=== PATIENT | female | born 1990 | race American Indian/Alaskan Native ===

== ENCOUNTER 2017-03-07 13:10 | Emergency (ER) | payer BC ==
[2017-03-07] MEDS ORDERED: DUONEB 0.5 MG-3 MG/3 ML SOLN IH ONE (13:50)
[2017-03-07] MEDS ORDERED: PROVENTIL IH ONE (13:50)
[2017-03-07] MEDS ORDERED: DECADRON IM ONE (13:52)
--- NOTE | 2017-03-07 13:54 | Emergency Department Report ---
- General Chief Complaint: Upper Respiratory Infection Stated Complaint: Wheezing, Chest Pain with Coughing Source: patient Mode of arrival: Ambulatory Limitations: No Limitations - History of Present Illness Initial Comments: 26 year old female presents to ED with pleuritic chest pain, wheezing, congestion, productive cough, sore throat x2 days. patient denies fever. patient states she has history of seasonal asthma and attempted one breathing treatment at home with her son's nebulizer. patient is stable, neurologically intact and in no acute distress. MD Complaint: cough, sore throat, nasal congestion -: Gradual, days(s) (2) Severity: mild Quality: aching Consistency: constant Improves With: nothing Worsens With: deep breaths Associated Symptoms: nasal congestion, sore throat, cough, chest pain (pleuritic ), nausea, vomiting. denies: fever - Related Data Previous Rx's Medication Instructions Recorded Last Taken Type Hyoscyamine Subl [Levsin Sl] 0.125 mg SL Q4HR PRN #10 tablet 12/15/14 Unknown Rx Ondansetron [Zofran Odt] 4 mg PO Q6H #10 tab.rapdis 12/15/14 Unknown Rx HYDROcodone/APAP 5-325 [[place] 1 each PO Q6HR PRN #5 tablet 04/25/16 Unknown Rx 5/325] Ketorolac [Toradol] 10 mg PO Q6H PRN #20 tablet 03/07/17 Unknown Rx Promethazine /Codeine 5 ml PO BID PRN #30 ml 03/07/17 Unknown Rx [Phenergan/Codeine 6.25-10 mg/5 ml] Allergies Allergy/AdvReac Type Severity Reaction Status Date / Time No Known Allergies Allergy Verified 04/25/16 04:33 ED Review of Systems ROS: Stated complaint: CHEST PAIN Other details as noted in HPI Constitutional: denies: chills, fever Eyes: denies: eye pain, eye discharge, vision change ENT: throat pain, congestion. denies: ear pain Respiratory: cough, wheezing (mild bilateral wheezing). denies: shortness of breath Cardiovascular: chest pain (pleuritic). denies: palpitations, dyspnea on exertion, edema, syncope Endocrine: no symptoms reported Gastrointestinal: denies: abdominal pain, nausea, diarrhea Genitourinary: denies: urgency, dysuria, discharge Musculoskeletal: denies: back pain, joint swelling, arthralgia Skin: denies: rash, lesions Neurological: headache. denies: weakness, paresthesias Psychiatric: denies: anxiety, depression Hematological/Lymphatic: denies: easy bleeding, easy bruising ED Past Medical Hx - Past Medical History Hx Seizures: Yes (Not taking seizure medication) Additional medical history: SEIZURES - Social History Smoking Status: Never Smoker Substance Use Type: None - Medications Home Medications: Home Medications Medication Instructions Recorded Confirmed Last Taken Type Hyoscyamine Subl [Levsin Sl] 0.125 mg SL Q4HR PRN #10 tablet 12/15/14 Unknown Rx Ondansetron [Zofran Odt] 4 mg PO Q6H #10 tab.rapdis 12/15/14 Unknown Rx HYDROcodone/APAP 5-325 [[place] 1 each PO Q6HR PRN #5 tablet 04/25/16 Unknown Rx 5/325] Ketorolac [Toradol] 10 mg PO Q6H PRN #20 tablet 03/07/17 Unknown Rx Promethazine /Codeine 5 ml PO BID PRN #30 ml 03/07/17 Unknown Rx [Phenergan/Codeine 6.25-10 mg/5 ml] ED Physical Exam - General Limitations: No Limitations General appearance: alert, in no apparent distress - Head Head exam: Present: atraumatic, normocephalic - Eye Eye exam: Present: normal appearance, PERRL, EOMI - ENT ENT exam: Present: normal exam, mucous membranes moist, TM's normal bilaterally - Neck Neck exam: Present: normal inspection, full ROM - Respiratory Respiratory exam: Present: wheezes (mild bilateral wheezing). Absent: respiratory distress, rales, rhonchi, stridor - Cardiovascular Cardiovascular Exam: Present: regular rate, normal rhythm. Absent: systolic murmur, diastolic murmur, rubs, gallop - GI/Abdominal GI/Abdominal exam: Present: soft, normal bowel sounds. Absent: tenderness - Rectal Rectal exam: Present: deferred - Extremities Exam Extremities exam: Present: normal inspection, full ROM - Back Exam Back exam: Present: normal inspection, full ROM - Neurological Exam Neurological exam: Present: alert, oriented X3, normal gait - Psychiatric Psychiatric exam: Present: normal affect, normal mood - Skin Skin exam: Present: warm, dry, intact, normal color. Absent: rash ED Course Vital Signs 03/07/17 03/07/17 03/07/17 13:21 14:19 14:44 Temperature 98.1 F Pulse Rate 77 Pulse Rate [ 90 Posterior Bilateral Throughout] Pulse Rate [ 92 H Posterior Right Throughout] Respiratory 18 Rate Respiratory 20 Rate [Posterior Bilateral Throughout] Respiratory 20 Rate [Posterior Right Throughout] Blood Pressure 126/85 Blood Pressure [Right] O2 Sat by Pulse 100 Oximetry 03/07/17 17:43 Temperature 98.0 F Pulse Rate 94 H Pulse Rate [ Posterior Bilateral Throughout] Pulse Rate [ Posterior Right Throughout] Respiratory 18 Rate Respiratory Rate [Posterior Bilateral Throughout] Respiratory Rate [Posterior Right Throughout] Blood Pressure Blood Pressure 136/85 [Right] O2 Sat by Pulse 97 Oximetry ED Medical Decision Making - Lab Data Microbiology 03/07/17 15:54 Nasopharyngeal Swab Influenza Types A,B Antigen ([place]) - Final 03/07/17 15:50 Throat Group A Streptococcus Rapid Screen - Final - EKG Data Interpretation: normal EKG - Radiology Data CXR 2 view Normal study. Interpreted by Radiologist - Medical Decision Making 26 year old female presents to ED with URI symptoms, cough, headache, congestion , pleuritic chest pain. patient has negative flu and strep during ED visit and pending strep culture. patient is stable, neurologically intact and in no acute distress. patient will be discharged with RX for NSAID's and cough syrup for viral syndrome. Critical care attestation.: If time is entered above; I have spent that time in minutes in the direct care of this critically ill patient, excluding procedure time. ED Disposition Clinical Impression: Viral syndrome Disposition: DISCHARGED TO HOME OR SELFCARE Is pt being admited?: No Does the pt Need Aspirin: No Condition: Stable Prescriptions: Ketorolac [Toradol] 10 mg PO Q6H PRN #20 tablet PRN Reason: Pain Promethazine /Codeine [Phenergan/Codeine 6.25-10 mg/5 ml] 5 ml PO BID PRN #30 ml PRN Reason: cough Referrals: PRIMARY CARE, [Primary Care Provider] - 3-5 Days Forms: Work/School Release Form(ED)
[2017-03-07] MEDS ORDERED: PHENERGAN/CODEINE 6.25-10 MG/5ML PO ONE (14:51)
--- NOTE | 2017-03-07 15:13 | XRay Report ---
Chest 2 views: History: Upper respiratory infection. Findings: Normal cardiomediastinal silhouette. Trachea is midline. No consolidation, pneumothorax or pleural effusion. Impression: No acute cardiopulmonary findings.
[2017-03-07 17:44] VITALS: BP 136/85
== END 2017-03-07 17:45 | disposition home or self-care (01) ==
LOC: ED 13:10
DX: B34.9 Viral infection, unspecified (principal)
CPT/HCPCS: 71020; 81025; 87116; 87400; 87430; 93005; 93010; 94640; 96372; 99284; J1100

== ENCOUNTER 2017-11-25 08:26 | Emergency (ER) | payer SELFPAY ==
[2017-11-25 10:15] LABS: Basophils % (Auto) 0.8 % (0.0-1.8); Eosinophils # (Auto) 0.1 K/mm3 (0.0-0.4); Eosinophils % (Auto) 1.5 % (0.0-4.3); Hematocrit 38.9 % (30.3-42.9); Hemoglobin 12.6 gm/dl (10.1-14.3); Lymphocytes # (Auto) 1.8 K/mm3 (1.2-5.4); Lymphocytes % (Auto) 44.9 % (13.4-35.0); Mean Corpuscular HGB Conc 32 % (30-34); Mean Corpuscular Hemoglobin 28 pg (28-32); Mean Corpuscular Volume 88 fl (79-97); Monocytes # (Auto) 0.5 K/mm3 (0.0-0.8); Monocytes % (Auto) 11.8 % (0.0-7.3); Platelet Count 330 K/mm3 (140-440); Red Blood Count 4.42 M/mm3 (3.65-5.03); Red Cell Distribution Width 12.8 % (13.2-15.2)
[2017-11-25 10:48] LABS: Alanine Aminotransferase 9 units/L (7-56); Albumin 4.3 g/dL (3.9-5); BUN/Creatinine Ratio 15; Blood Urea Nitrogen 9 mg/dL (7-17); Calcium 8.9 mg/dL (8.4-10.2); Hemolysis Index 9
[2017-11-25 11:27] LABS: Bacteria,Urine 1+ /HPF (Negative); Bilirubin,Urine NEG (Negative); Blood,Urine NEG (Negative); Color,Urine Yellow (Yellow); Mucus,Urine FEW /HPF; Nitrite,Urine NEG (Negative); Protein,Urine <15 mg/dL mg/dL (Negative); Urobilinogen,Urine < 2.0 mg/dL (<2.0)
--- NOTE | 2017-11-25 16:27 | Emergency Department Report ---
ED Female HPI - General Chief complaint: Abdominal Pain Stated complaint: ABD PAIN Time Seen by Provider: 11/25/17 16:26 Source: patient Mode of arrival: Ambulatory Limitations: No Limitations - History of Present Illness Initial comments: Patient reports that she is having lower abdominal pain since Friday cramping on and off. She said that she is here because her porphyrin was diagnosed with urinary tract infection last week and she wants to make sure that she does not have urinary tract infection she said the pain is in her left lower abdomen. She said her boyfriend was treated with a shot and a pill. I discussed with her if her porphyrin is having penile discharge and she said no. I discussed with her that if he was sent home with antibiotic she says no. I discussed with her more than likely her boyfriend was treated for STD empirically at his choice with Rocephin and azithromycin for gonorrhea and Chlamydia. Patient denies any vaginal discharge. She denies any vaginal bleeding. She denies any itching or sores on her vagina. She is not concerned about any STD. Denies any fever or chills, nausea or vomiting or back pain. Patient does not want to be tested for STD MD Complaint: pelvic pain Onset/Timin -: days(s) Location: suprapubic Radiation: non-radiating Severity: moderate Severity scale (0 -10): 5 Quality: cramping Consistency: intermittent Worsens with: none Are you Now?: No Associated Symptoms: abdominal pain. denies: vaginal discharge, vaginal bleeding, nausea/vomiting, fever/chills, headaches, loss of appetite, dysuria, hematuria, rash, seizure, shortness of breath, syncope, weakness - Related Data Sexually active: Yes Previous Rx's Medication Instructions Recorded Last Taken Type Hyoscyamine Subl [Levsin Sl] 0.125 mg SL Q4HR PRN #10 tablet 12/15/14 Unknown Rx Ondansetron [Zofran Odt] 4 mg PO Q6H #10 tab.rapdis 12/15/14 Unknown Rx HYDROcodone/APAP 5-325 [[place] 1 each PO Q6HR PRN #5 tablet 04/25/16 Unknown Rx 5/325] Ketorolac [Toradol] 10 mg PO Q6H PRN #20 tablet 03/07/17 Unknown Rx Promethazine /Codeine 5 ml PO BID PRN #30 ml 03/07/17 Unknown Rx [Phenergan/Codeine 6.25-10 mg/5 ml] Allergies Allergy/AdvReac Type Severity Reaction Status Date / Time No Known Allergies Allergy Verified 04/25/16 04:33 ED Review of Systems ROS: Stated complaint: ABD PAIN Other details as noted in HPI Comment: All other systems reviewed and negative Constitutional: no symptoms reported Respiratory: no symptoms reported Cardiovascular: denies: chest pain, palpitations, dyspnea on exertion, orthopnea , edema, syncope, paroxysmal nocturnal dyspnea Gastrointestinal: denies: abdominal pain, nausea, vomiting, diarrhea, constipation, hematemesis, melena, hematochezia Genitourinary: other (patient here to be checked for urinary tract infection because she said her boyfriend had a urinary tract infection and she wants to make sure she didn't get it). denies: urgency, dysuria, frequency, hematuria, discharge, abnormal menses, dyspareunia Musculoskeletal: denies: back pain, joint swelling, arthralgia, myalgia Skin: denies: rash Neurological: denies: headache ED Past Medical Hx - Past Medical History Previous Medical History?: Yes Hx Seizures: Yes (Not taking seizure medication) Additional medical history: SEIZURES - Surgical History Past Surgical History?: No - Family History Family history: no significant - Social History Smoking Status: Current Every Day Smoker Substance Use Type: None - Medications Home Medications: Home Medications Medication Instructions Recorded Confirmed Last Taken Type Hyoscyamine Subl [Levsin Sl] 0.125 mg SL Q4HR PRN #10 tablet 12/15/14 Unknown Rx Ondansetron [Zofran Odt] 4 mg PO Q6H #10 tab.rapdis 12/15/14 Unknown Rx HYDROcodone/APAP 5-325 [[place] 1 each PO Q6HR PRN #5 tablet 04/25/16 Unknown Rx 5/325] Ketorolac [Toradol] 10 mg PO Q6H PRN #20 tablet 03/07/17 Unknown Rx Promethazine /Codeine 5 ml PO BID PRN #30 ml 03/07/17 Unknown Rx [Phenergan/Codeine 6.25-10 mg/5 ml] ED Physical Exam - General Limitations: No Limitations General appearance: alert, in no apparent distress - Head Head exam: Present: atraumatic, normocephalic, normal inspection - Eye Eye exam: Present: normal appearance, PERRL, EOMI. Absent: periorbital swelling , periorbital tenderness Pupils: Present: normal accommodation - ENT ENT exam: Present: normal exam, normal orophraynx, mucous membranes moist - Neck Neck exam: Present: normal inspection, full ROM. Absent: tenderness, meningismus, lymphadenopathy, thyromegaly - Respiratory Respiratory exam: Present: normal lung sounds bilaterally. Absent: respiratory distress, chest wall tenderness - Cardiovascular Cardiovascular Exam: Present: regular rate, normal rhythm, normal heart sounds. Absent: systolic murmur, diastolic murmur - GI/Abdominal GI/Abdominal exam: Present: soft, normal bowel sounds. Absent: distended, tenderness, guarding, rebound, rigid, organomegaly, mass, bruit, pulsatile mass - Extremities Exam Extremities exam: Present: normal inspection, full ROM, normal capillary refill , other (no clubbing, cyanosis or edema. Positive pulses distal extremities. No neurovascular compromise). Absent: tenderness, pedal edema, joint swelling, calf tenderness - Back Exam Back exam: Present: normal inspection, full ROM. Absent: tenderness, CVA tenderness (R), CVA tenderness (L), muscle spasm, paraspinal tenderness, vertebral tenderness, rash noted - Neurological Exam Neurological exam: Present: alert, oriented X3, normal gait, reflexes normal. Absent: motor sensory deficit - Psychiatric Psychiatric exam: Present: normal affect, normal mood - Skin Skin exam: Present: warm, dry, intact, normal color. Absent: rash ED Course Vital Signs 11/25/17 09:06 Temperature 98.0 F Pulse Rate 81 Respiratory 16 Rate Blood Pressure 120/72 O2 Sat by Pulse 99 Oximetry - Reevaluation(s) Reevaluation #1: 11/25/17 17:14 She is stable and her abdominal pain has resolved since she's been in the emergency room. I discussed with her that her urinalysis and redness test was negative and her CBC and chemistry were stable. ED Medical Decision Making - Lab Data Result diagrams: 11/25/17 09:45 11/25/17 09:45 Lab Results 11/25/17 11/25/17 11/25/17 Range/Units 09:45 09:45 09:45 WBC 3.9 L (4.5-11.0) K/mm3 RBC 4.42 (3.65-5.03) M/mm3 Hgb 12.6 (10.1-14.3) gm/dl Hct 38.9 (30.3-42.9) % MCV 88 (79-97) fl MCH 28 (28-32) pg MCHC 32 (30-34) % RDW 12.8 L (13.2-15.2) % Plt Count 330 (140-440) K/mm3 Lymph % (Auto) 44.9 H (13.4-35.0) % [place] % (Auto) 11.8 H (0.0-7.3) % Eos % (Auto) 1.5 (0.0-4.3) % Baso % (Auto) 0.8 (0.0-1.8) % Lymph # 1.8 (1.2-5.4) K/mm3 [place] # 0.5 (0.0-0.8) K/mm3 Eos # 0.1 (0.0-0.4) K/mm3 Baso # 0.0 (0.0-0.1) K/mm3 Seg Neutrophils % 41.0 (40.0-70.0) % Seg Neutrophils # 1.6 L (1.8-7.7) K/mm3 Sodium 142 (137-145) mmol/L Potassium 3.8 (3.6-5.0) mmol/L Chloride 104.5 (98-107) mmol/L Carbon Dioxide 28 (22-30) mmol/L Anion Gap 13 mmol/L BUN 9 (7-17) mg/dL Creatinine 0.6 L (0.7-1.2) mg/dL Estimated GFR > 60 ml/min BUN/Creatinine Ratio 15 % Glucose 88 (65-100) mg/dL Calcium 8.9 (8.4-10.2) mg/dL Total Bilirubin 0.50 (0.1-1.2) mg/dL AST 17 (5-40) units/L ALT 9 (7-56) units/L Alkaline Phosphatase 56 (35-129) units/L Total Protein 7.0 (6.3-8.2) g/dL Albumin 4.3 (3.9-5) g/dL Albumin/Globulin Ratio 1.6 % HCG, Qual Negative (Negative) Urine Color (Yellow) Urine Turbidity (Clear) Urine pH (5.0-7.0) Ur Specific [place] (1.003-1.030) Urine Protein (Negative) mg/dL Urine Glucose (UA) (Negative) mg/dL Urine Ketones (Negative) mg/dL Urine Blood (Negative) Urine Nitrite (Negative) Urine Bilirubin (Negative) Urine Urobilinogen (<2.0) mg/dL Ur Leukocyte Esterase (Negative) Urine WBC (Auto) (0.0-6.0) /HPF Urine RBC (Auto) (0.0-6.0) /HPF U Epithel Cells (Auto) (0-13.0) /HPF Urine Bacteria (Auto) (Negative) /HPF Urine Mucus /HPF 11/25/17 Range/Units 10:23 WBC (4.5-11.0) K/mm3 RBC (3.65-5.03) M/mm3 Hgb (10.1-14.3) gm/dl Hct (30.3-42.9) % MCV (79-97) fl MCH (28-32) pg MCHC (30-34) % RDW (13.2-15.2) % Plt Count (140-440) K/mm3 Lymph % (Auto) (13.4-35.0) % [place] % (Auto) (0.0-7.3) % Eos % (Auto) (0.0-4.3) % Baso % (Auto) (0.0-1.8) % Lymph # (1.2-5.4) K/mm3 [place] # (0.0-0.8) K/mm3 Eos # (0.0-0.4) K/mm3 Baso # (0.0-0.1) K/mm3 Seg Neutrophils % (40.0-70.0) % Seg Neutrophils # (1.8-7.7) K/mm3 Sodium (137-145) mmol/L Potassium (3.6-5.0) mmol/L Chloride (98-107) mmol/L Carbon Dioxide (22-30) mmol/L Anion Gap mmol/L BUN (7-17) mg/dL Creatinine (0.7-1.2) mg/dL Estimated GFR ml/min BUN/Creatinine Ratio % Glucose (65-100) mg/dL Calcium (8.4-10.2) mg/dL Total Bilirubin (0.1-1.2) mg/dL AST (5-40) units/L ALT (7-56) units/L Alkaline Phosphatase (35-129) units/L Total Protein (6.3-8.2) g/dL Albumin (3.9-5) g/dL Albumin/Globulin Ratio % HCG, Qual (Negative) Urine Color Yellow (Yellow) Urine Turbidity Clear (Clear) Urine pH 6.0 (5.0-7.0) Ur Specific [place] 1.028 (1.003-1.030) Urine Protein <15 mg/dl (Negative) mg/dL Urine Glucose (UA) Neg (Negative) mg/dL Urine Ketones Neg (Negative) mg/dL Urine Blood Neg (Negative) Urine Nitrite Neg (Negative) Urine Bilirubin Neg (Negative) Urine Urobilinogen < 2.0 (<2.0) mg/dL Ur Leukocyte Esterase Neg (Negative) Urine WBC (Auto) 3.0 (0.0-6.0) /HPF Urine RBC (Auto) 2.0 (0.0-6.0) /HPF U Epithel Cells (Auto) 7.0 (0-13.0) /HPF Urine Bacteria (Auto) 1+ (Negative) /HPF Urine Mucus Few /HPF Urine culture sent and pending - Medical Decision Making ED course: She here reports that she is here to be checked for urinary tract infection because her boyfriend had a urinary tract infection last week and she was to make sure that she does not have it. She is not having any vaginal bleeding or discharge. Lab stable, negative , urinalysis is negative except 1+ bacteria and urine cultures were sent. Patient is not having any urinary symptoms. Discussed patient that I will order ultrasound to check to make sure that her ovaries or normal and she refused and said that she does not want a high bill. She also said that she is only here because his she wants to make sure that she doesn't have a urinary tract infection. I told patient that if her boyfriend was treated with a shot of a pill that means that he was treated for STD and I asked her if she wants to be tested or treated and she says she does not have an STD. I discussed with her that she needs to go to a clinic and can't help department and get STD test if she changes her mind and she voiced understanding. Patient abdominal pain has resolved and she is able to tolerate fluids without any nausea or vomiting. Discharged home to follow up with [facility]. Critical care attestation.: If time is entered above; I have spent that time in minutes in the direct care of this critically ill patient, excluding procedure time. ED Disposition Clinical Impression: Abdominal pain Qualifiers: Abdominal location: left lower quadrant Qualified Code(s): R10.32 - Left lower quadrant pain Disposition: TO HOME OR SELFCARE Is pt being admited?: No Does the pt Need Aspirin: No Condition: Stable Instructions: Abdominal Pain (ED), Safe Sex (ED) Additional Instructions: Please return to the emergency room if your abdominal If you decide to get checked for STD, UTI go to [facility] Please practice safe sex Referrals: PRIMARY CARE, [Primary Care Provider] - 2-3 Days [facility] [Outside] - 2-3 Days [facility] [Outside] - 2-3 Days Forms: Work/School Release Form(ED)
[2017-11-25 17:34] VITALS: BP 117/76
[2017-11-25] MEDS ORDERED: ROCEPHIN IM ONE (17:36)
[2017-11-25] MEDS ORDERED: XYLOCAINE 1% MPF 5 mL INFILTRATI ONE (17:36)
[2017-11-25] MEDS ORDERED: ZITHROMAX PO ONE (17:36)
== END 2017-11-25 17:59 | disposition home or self-care (01) ==
LOC: ED 08:26
DX: R10.9 Unspecified abdominal pain (principal); F17.200 Nicotine dependence, unspecified, uncomplicated
CPT/HCPCS: 36415; 80053; 81001; 84703; 85025; 87086; 96372; 99283; J0696

== ENCOUNTER 2018-05-15 16:05 | Emergency (ER) | payer SELFPAY ==
[2018-05-15 17:52] LABS: HCG Qualitative,Urine Positive (Negative)
[2018-05-15 17:53] LABS: Bilirubin,Urine NEG (Negative); Blood,Urine NEG (Negative); Color,Urine Yellow (Yellow); Urobilinogen,Urine < 2.0 mg/dL (<2.0); WBC,Urine < 1.0 /HPF (0.0-6.0)
[2018-05-15 18:05] LABS: Basophils # (Auto) 0.1 K/mm3 (0.0-0.1); Basophils % (Auto) 0.9 % (0.0-1.8); Eosinophils # (Auto) 0.1 K/mm3 (0.0-0.4); Eosinophils % (Auto) 1.1 % (0.0-4.3); Hematocrit 38.4 % (30.3-42.9); Hemoglobin 12.6 gm/dl (10.1-14.3); Lymphocytes # (Auto) 1.5 K/mm3 (1.2-5.4); Lymphocytes % (Auto) 21.8 % (13.4-35.0); Mean Corpuscular HGB Conc 33 % (30-34); Mean Corpuscular Hemoglobin 29 pg (28-32); Mean Corpuscular Volume 88 fl (79-97); Monocytes # (Auto) 0.5 K/mm3 (0.0-0.8); Monocytes % (Auto) 7.7 % (0.0-7.3); Platelet Count 368 K/mm3 (140-440); Red Blood Count 4.38 M/mm3 (3.65-5.03); Red Cell Distribution Width 12.9 % (13.2-15.2)
[2018-05-15 18:18] LABS: Alanine Aminotransferase 7 units/L (7-56); Albumin 4.3 g/dL (3.9-5); BUN/Creatinine Ratio 20; Blood Urea Nitrogen 10 mg/dL (7-17); Calcium 9.1 mg/dL (8.4-10.2); Hemolysis Index 3
[2018-05-15] MEDS ORDERED: NACL 0.9% 1000 ML 1,000 ML IV ONE (20:51)
--- NOTE | 2018-05-15 21:03 | Emergency Department Report ---
ED Abdominal Pain HPI - General Chief Complaint: Abdominal Pain Stated Complaint: LIGHT HEADED/DIZZY 7WKS PREGRANT Time Seen by Provider: 05/15/18 20:50 Source: patient Mode of arrival: Ambulatory Limitations: No Limitations - History of Present Illness Initial Comments: Patient is a 27-year-old female presents emergency room with complaints of lower abdominal pain 2 days. Patient states the pain is a 2-3 out of 10. Patient states the pain is worse with movement and that or with rest. Patient states she is 7 weeks just found out about 2 days ago. Patient states her last menstrual period was 03/27/2018. Patient also complains of nausea, headache, dizziness. Patient states she has not been eating well or drinking very much water. Patient states these transient symptoms are different from her previous . Patient denies vaginal bleeding. Patient denies vaginal discharge or loss of fluid per vagina. Patient states she had a positive home test. Patient has not seen an MAINTENANCE ELECTRICIAN yet. She is a . Patient states that she has one healthy boy child and had an miscarriage. Previous uneventful and was a vaginal delivery. Patient states dizziness is improving. Patient states the headache is improving. Patient states the dizziness only when she stands up. Patient denies fever and chills. Patient denies chest pain shortness of breath. MD Complaint: abdominal pain -: Sudden Location: LLQ Radiation: none Migration to: no migration Severity: mild Severity scale (0 -10): 2 Quality: cramping Consistency: constant Improves With: rest Worsens With: movement Context: other () Associated Symptoms: nausea. denies: vomiting, diarrhea, fever, chills, constipation, dysuria, hematemesis, hematochezia, melena, hematuria, anorexia, syncope - Related Data LMP (females 10-50): Previous Rx's Medication Instructions Recorded Last Taken Type Hyoscyamine Subl [Levsin Sl] 0.125 mg SL Q4HR PRN #10 tablet 12/15/14 Unknown Rx Ondansetron [Zofran Odt] 4 mg PO Q6H #10 tab.rapdis 12/15/14 Unknown Rx HYDROcodone/APAP 5-325 [[place] 1 each PO Q6HR PRN #5 tablet 04/25/16 Unknown Rx 5/325] Ketorolac [Toradol] 10 mg PO Q6H PRN #20 tablet 03/07/17 Unknown Rx Promethazine /Codeine 5 ml PO BID PRN #30 ml 03/07/17 Unknown Rx [Phenergan/Codeine 6.25-10 mg/5 ml] Allergies Allergy/AdvReac Type Severity Reaction Status Date / Time No Known Allergies Allergy Verified 04/25/16 04:33 ED Review of Systems ROS: Stated complaint: LIGHT HEADED/DIZZY 7WKS PREGRANT Other details as noted in HPI Constitutional: denies: chills, fever Eyes: denies: eye pain, eye discharge, vision change ENT: denies: ear pain, throat pain Respiratory: denies: cough, shortness of breath, wheezing Cardiovascular: denies: chest pain, palpitations Endocrine: no symptoms reported Gastrointestinal: abdominal pain, nausea. denies: vomiting, diarrhea Genitourinary: denies: urgency, dysuria, discharge Musculoskeletal: denies: back pain, joint swelling, arthralgia Skin: denies: rash, lesions Neurological: headache. denies: weakness, paresthesias Psychiatric: denies: anxiety, depression Hematological/Lymphatic: denies: easy bleeding, easy bruising ED Past Medical Hx - Past Medical History Previous Medical History?: Yes Hx Seizures: Yes (Not taking seizure medication) Additional medical history: SEIZURES - Surgical History Past Surgical History?: No - Family History Family history: no significant - Social History Smoking Status: Never Smoker Substance Use Type: None - Medications Home Medications: Home Medications Medication Instructions Recorded Confirmed Last Taken Type Hyoscyamine Subl [Levsin Sl] 0.125 mg SL Q4HR PRN #10 tablet 12/15/14 Unknown Rx Ondansetron [Zofran Odt] 4 mg PO Q6H #10 tab.rapdis 12/15/14 Unknown Rx HYDROcodone/APAP 5-325 [[place] 1 each PO Q6HR PRN #5 tablet 04/25/16 Unknown Rx 5/325] Ketorolac [Toradol] 10 mg PO Q6H PRN #20 tablet 03/07/17 Unknown Rx Promethazine /Codeine 5 ml PO BID PRN #30 ml 03/07/17 Unknown Rx [Phenergan/Codeine 6.25-10 mg/5 ml] ED Physical Exam - General Limitations: No Limitations General appearance: alert, in no apparent distress - Head Head exam: Present: atraumatic, normocephalic - Eye Eye exam: Present: normal appearance - ENT ENT exam: Present: mucous membranes moist - Neck Neck exam: Present: normal inspection - Respiratory Respiratory exam: Present: normal lung sounds bilaterally. Absent: respiratory distress - Cardiovascular Cardiovascular Exam: Present: regular rate, normal rhythm. Absent: systolic murmur, diastolic murmur, rubs, gallop - GI/Abdominal GI/Abdominal exam: Present: soft, normal bowel sounds. Absent: distended, tenderness, guarding, rebound - Extremities Exam Extremities exam: Present: normal inspection - Back Exam Back exam: Present: normal inspection - Neurological Exam Neurological exam: Present: alert, oriented X3 - Psychiatric Psychiatric exam: Present: normal affect, normal mood - Skin Skin exam: Present: warm, dry, intact, normal color. Absent: rash ED Course Vital Signs 05/15/18 05/15/18 05/15/18 16:21 20:58 21:00 Temperature 98.1 F Pulse Rate 87 72 76 Respiratory 16 19 20 Rate Blood Pressure 123/73 122/68 118/66 O2 Sat by Pulse 100 100 100 Oximetry 05/15/18 21:07 Temperature Pulse Rate Respiratory 16 Rate Blood Pressure O2 Sat by Pulse 100 Oximetry - Reevaluation(s) Reevaluation #1: Patient laboratory throughout ER hallway. Patient states all symptoms have resolved. Patient ultrasound is normal for a single IUP at 7 weeks and 3 days. All results discussed with patient patient agrees with plan of care. Patient instructed to see MAINTENANCE ELECTRICIAN as soon as possible. She states she does not want any nausea medications. Patient states she does not believe in taking any type of medications during . States she will take her vitamins And increase water. 05/15/18 22:49 ED Medical Decision Making - Lab Data Result diagrams: 05/15/18 17:51 05/15/18 17:51 - Radiology Data Radiology results: report reviewed IUP - Medical Decision Making She is a 27-year-old female presents emergency room with dizziness, lightheaded and mild lower abdominal pain. Workup was negative. Patient is stable for discharge. Patient was discharged home with a ER precautions. - Differential Diagnosis . Dizziness. Nausea. Normal symptoms of . Critical care attestation.: If time is entered above; I have spent that time in minutes in the direct care of this critically ill patient, excluding procedure time. ED Disposition Clinical Impression: Abdominal pain affecting , Dizziness Disposition: DC-01 TO HOME OR SELFCARE Is pt being admited?: No Does the pt Need Aspirin: No Condition: Stable Instructions: (ED), Abdominal Pain (ED) Additional Instructions: Patient is a* vitamin. Patient to follow-up with primary care in 3-5 days. Patient to follow up with MAINTENANCE ELECTRICIAN in 2-4 days. Patient to return to ER if condition worsens. Patient to increase water. Patient to rest. Patient to eat regular meals. diet discussed with patient. Referrals: PRIMARY CARE, [Primary Care Provider] - 3-5 Days Time of Disposition: 22:51
--- NOTE | 2018-05-15 22:15 | Ultrasound Report ---
FINAL REPORT EXAM: US OB TRANSVAGINAL HISTORY: preg, abd pain. TECHNIQUE: Ultrasound obstetrical transvaginal PRIORS: None. FINDINGS: Gestational sac present within the uterus There is pole with crown-rump length of 1.26 centimeters corresponding to estimated gestational age 7 weeks 3 days Estimated date of delivery is December 29, 2018 There is a yolk sac identified cardiac activity is present with heart rate 146 beats per minute Right ovary is 3.1 x 2.3 x 2.6 centimeters Left ovary is 3.2 x 2.0 x 2.6 centimeters There is normal vascular flow and sonographic appearance of the ovaries Uterus is 9.2 centimeters in length IMPRESSION: Single live intrauterine gestation estimated at 7 weeks 3 days
--- NOTE | 2018-05-15 22:20 | Ultrasound Report ---
FINAL REPORT EXAM: US OB < = 14 WEEKS FETUS HISTORY: preg, abd pain. TECHNIQUE: Ultrasound obstetrical transabdominal PRIORS: None. FINDINGS: Gestational sac present within the uterus There is pole with crown-rump length of 1.26 centimeters corresponding to estimated gestational age 7 weeks 3 days Estimated date of delivery is December 29, 2018 There is a yolk sac identified cardiac activity is present with heart rate 146 beats per minute Right ovary is 3.1 x 2.3 x 2.6 centimeters Left ovary is 3.2 x 2.0 x 2.6 centimeters There is normal vascular flow and sonographic appearance of the ovaries Uterus is 9.2 centimeters in length IMPRESSION: Single live intrauterine gestation estimated at 7 weeks 3 days
[2018-05-15 23:01] VITALS: BP 118/66
== END 2018-05-15 23:01 | disposition home or self-care (01) ==
LOC: ED 16:05
DX: O26.891 Other specified pregnancy related conditions, first trimester (principal); R10.32 Left lower quadrant pain; R42 Dizziness and giddiness; R11.0 Nausea; Z3A.01 Less than 8 weeks gestation of pregnancy
CPT/HCPCS: 36415; 76801; 76817; 80053; 81001; 81025; 84702; 84703; 85025; 99284

== ENCOUNTER 2018-11-12 09:11 | Emergency (ER) | payer SELFPAY ==
[2018-11-12 09:19] VITALS: BP 125/74
[2018-11-12 09:48] LABS: Bilirubin,Urine NEG (Negative); Blood,Urine NEG (Negative); Color,Urine Yellow (Yellow); Mucus,Urine FEW /HPF
[2018-11-12 09:52] LABS: HCG Qualitative,Urine Negative (Negative)
[2018-11-12] MEDS ORDERED: LEVAQUIN PO ONE (10:18)
--- NOTE | 2018-11-12 10:25 | Emergency Department Report ---
ED Abdominal Pain HPI - General Chief Complaint: Abdominal Pain Stated Complaint: ABD PAIN/VOMITING Time Seen by Provider: 11/12/18 10:12 Source: patient Mode of arrival: Ambulatory Limitations: No Limitations - History of Present Illness Initial Comments: Letty is a pleasant healthy 28-year-old female who presents with lower abdominal pain for last 2 days with watery diarrhea. 3-5 bowel movements watery stools since Friday. She has bilateral cramping pain. Denies fever. Mild headache. Positive malaise. She is concerned about dehydration. However she has been able to hydrate and keep down fluids. Moderately severe symptoms. 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 She is around a lot of children. She is currently menstruating. Normal menstruation occurs around the 15th of each month. MD Complaint: abdominal pain -: Gradual, days(s) (3) Location: LLQ, RLQ Migration to: no migration Severity: moderate Quality: cramping Consistency: intermittent Associated Symptoms: diarrhea - Related Data Previous Rx's Medication Instructions Recorded Last Taken Type Hyoscyamine Subl [Levsin Sl] 0.125 mg SL Q4HR PRN #10 tablet 12/15/14 Unknown Rx Ondansetron [Zofran Odt] 4 mg PO Q6H #10 tab.rapdis 12/15/14 Unknown Rx HYDROcodone/APAP 5-325 [[place] 1 each PO Q6HR PRN #5 tablet 04/25/16 Unknown Rx 5/325] Ketorolac [Toradol] 10 mg PO Q6H PRN #20 tablet 03/07/17 Unknown Rx Promethazine /Codeine 5 ml PO BID PRN #30 ml 03/07/17 Unknown Rx [Phenergan/Codeine 6.25-10 mg/5 ml] Ciprofloxacin HCl [Ciprofloxacin 500 mg PO BID 3 Days #6 tablet 11/12/18 Unknown Rx TAB] Allergies Allergy/AdvReac Type Severity Reaction Status Date / Time No Known Allergies Allergy Verified 04/25/16 04:33 ED Review of Systems ROS: Stated complaint: ABD PAIN/VOMITING Other details as noted in HPI Comment: All other systems reviewed and negative Constitutional: malaise. denies: chills, fever Gastrointestinal: abdominal pain, diarrhea ED Past Medical Hx - Past Medical History Previous Medical History?: Yes Hx Seizures: Yes (Not taking seizure medication) Additional medical history: SEIZURES - Surgical History Past Surgical History?: No - Social History Smoking Status: Current Every Day Smoker Substance Use Type: None - Medications Home Medications: Home Medications Medication Instructions Recorded Confirmed Last Taken Type Hyoscyamine Subl [Levsin Sl] 0.125 mg SL Q4HR PRN #10 tablet 12/15/14 Unknown Rx Ondansetron [Zofran Odt] 4 mg PO Q6H #10 tab.rapdis 12/15/14 Unknown Rx HYDROcodone/APAP 5-325 [[place] 1 each PO Q6HR PRN #5 tablet 04/25/16 Unknown Rx 5/325] Ketorolac [Toradol] 10 mg PO Q6H PRN #20 tablet 03/07/17 Unknown Rx Promethazine /Codeine 5 ml PO BID PRN #30 ml 03/07/17 Unknown Rx [Phenergan/Codeine 6.25-10 mg/5 ml] Ciprofloxacin HCl [Ciprofloxacin 500 mg PO BID 3 Days #6 tablet 11/12/18 Unknown Rx TAB] ED Physical Exam - General Limitations: No Limitations General appearance: alert, in no apparent distress - Head Head exam: Present: atraumatic, normocephalic - Eye Eye exam: Present: normal appearance - ENT ENT exam: Present: mucous membranes moist - Neck Neck exam: Present: normal inspection - Respiratory Respiratory exam: Present: normal lung sounds bilaterally. Absent: respiratory distress, wheezes, rales, rhonchi - Cardiovascular Cardiovascular Exam: Present: regular rate, normal rhythm, normal heart sounds. Absent: systolic murmur, diastolic murmur, rubs, gallop - GI/Abdominal GI/Abdominal exam: Present: soft, normal bowel sounds. Absent: distended, tenderness, guarding, rebound - Extremities Exam Extremities exam: Present: normal inspection - Back Exam Back exam: Present: normal inspection - Neurological Exam Neurological exam: Present: alert, oriented X3 - Psychiatric Psychiatric exam: Present: normal affect, normal mood - Skin Skin exam: Present: warm, dry, intact, normal color. Absent: rash ED Course Vital Signs 11/12/18 09:17 Temperature 97.5 F L Pulse Rate 82 Respiratory 18 Rate Blood Pressure 125/74 O2 Sat by Pulse 100 Oximetry ED Medical Decision Making - Medical Decision Making Ms. Boss presents with abdominal pain and watery diarrhea. Possible bacterial infection such as Escherichia coli. No physical signs of peritonitis. I do not suspect appendicitis. prescribed 3 days of ciprofloxacin. Recommended [id number] Imodium. Critical care attestation.: If time is entered above; I have spent that time in minutes in the direct care of this critically ill patient, excluding procedure time. ED Disposition Clinical Impression: Abdominal pain, Diarrhea Disposition: TO HOME OR SELFCARE Is pt being admited?: No Does the pt Need Aspirin: No Condition: Stable Instructions: Abdominal Pain (ED), Loperamide (By mouth) Prescriptions: Ciprofloxacin HCl [Ciprofloxacin TAB] 500 mg PO BID 3 Days #6 tablet Referrals: [facility] [Outside] - 3-5 Days Forms: Work/School Release Form(ED)
== END 2018-11-12 10:47 | disposition home or self-care (01) ==
LOC: ED 09:11
DX: R10.32 Left lower quadrant pain (principal); R10.31 Right lower quadrant pain; R19.7 Diarrhea, unspecified; R51 Headache; F17.200 Nicotine dependence, unspecified, uncomplicated
CPT/HCPCS: 81001; 81025; 99283

== ENCOUNTER 2020-10-04 13:25 | Outpatient (CLI) | payer BC, MEDICAID ==
[2020-10-04 14:02] VITALS: BP 131/72
== END 2020-10-04 17:30 | disposition home or self-care (01) ==
LOC: TRG 13:25 → APU 13:26 → TRG 17:30
PROVIDERS: ATTEND Obstetrics & Gynecology
DX: O47.1 False labor at or after 37 completed weeks of gestation (principal); Z3A.37 37 weeks gestation of pregnancy
CPT/HCPCS: 59025